=== PATIENT | male | born 1945 | race Caucasian/White ===

== ENCOUNTER 2017-07-13 06:17 | Day surgery (SDC) | payer MEDICARE, OTHER ==
[~2017-07-13 06:17] MED LIST: Lactated Ringers 1,000 ML IV SCH
[2017-07-13] MEDS ORDERED: Propofol 200 MG/20 ML SDV ONE (08:06)
[2017-07-13] MEDS ORDERED: fentaNYL 100 MCG/2 ML SDV ONE (08:06)
[2017-07-13] MEDS ORDERED: Glycopyrrolate 0.2 MG/ML 2 ML SDV ONE (08:20)
--- NOTE | 2017-07-13 11:39 | OR ---
PRE-OPERATIVE DIAGNOSES: Screening colonoscopy. The patient's last colonoscopy in 2007 was normal. He denies any known family history of colon cancer. POST-OPERATIVE DIAGNOSES: 1. Four small polyps, located at 45 cm from the anal verge. a. 4 mm x2, removed with hot snare. b. 2 mm x2, removed with cold forceps. 2. Mild diverticulosis. 3. Minimal hemorrhoids. PROCEDURE: Colonoscopy with polypectomy x4 (2 using hot snare and 2 using cold forceps). SURGEON: Pedro Pablo Yoon M.D. ANESTHESIA: Monitored anesthesia care. BOWEL PREP: Good. DESCRIPTION OF PROCEDURE: Girma Grajeda was brought to the endoscopy suite after discussing risks and benefits of the procedure. Informed consent was obtained for conscious sedation and colonoscopy with or without biopsy and/or polypectomy. We also discussed possibility of missed lesions. Pre-procedure exam was unremarkable. IV, oxygen, and monitors were placed. The patient was placed in the left lateral decubitus position. Sedation was administered and a digital rectal exam was performed, which was unremarkable. Colonoscope was passed into the rectum and slowly advanced all the way to the cecum. Cecum was viewed and photographed. The colonoscope was slowly withdrawn and the mucosa was closed observed in a direct circumferential manner. The ascending colon was unremarkable. The transverse colon was unremarkable. The descending colon did reveal 4 small polyps at around 45 cm. 4 mm x2 were removed with hot snare and 2 mm x2 removed with cold forceps. The sigmoid colon was remarkable for some mild diverticulosis. The transverse and descending colon also had minimal amount of diverticulosis present as well. Retroflexion was performed. Rectal mucosa was unremarkable except for some minimal hemorrhoids, not acutely inflamed. Scope was removed. The patient tolerated the procedure well. The patient was monitored until that baseline status. Discharge instructions were reviewed and the patient was discharged in good condition. COMPLICATIONS: None. TOTAL TIME: 16 minutes. ESTIMATED BLOOD LOSS: Less than 1 mL. RECOMMENDATIONS/FOLLOW-UP: We will await results of path report to determine ideal followup interval. We will have the patient hold his aspirin for 3 days just to limit any chance of bleeding. I would like to kindly thank Felisha Desouza for this referral. DMB: 07/13/2017 08:42:37 MODL: 07/13/2017 10:22:19 /[id number]
== END 2017-07-13 09:34 | disposition home or self-care (01) ==
LOC: VM.SDS 06:17
PROVIDERS: ATTEND Family Medicine
DX: Z12.11 Encounter for screening for malignant neoplasm of colon (principal); D12.4 Benign neoplasm of descending colon; K57.30 Diverticulosis of large intestine without perforation or abscess without bleeding; K64.9 Unspecified hemorrhoids; E78.5 Hyperlipidemia, unspecified; Z79.82 Long term (current) use of aspirin
CPT/HCPCS: 88305; J2704; J3010; J3490; J7120

== ENCOUNTER 2022-10-21 08:06 | Day surgery (SDC) | payer MEDICARE, OTHER ==
[2022-10-21] MEDS ORDERED: Propofol 200 MG/20 ML SDV ONE (09:49)
[2022-10-21] MEDS ORDERED: fentaNYL 100 MCG/2 ML SDV ONE (09:49)
[2022-10-21] MEDS ORDERED: Atropine 0.4 MG/ML SDV ONE (10:13)
== END 2022-10-21 11:30 | disposition home or self-care (01) ==
LOC: VM.SDS 08:06
PROVIDERS: ATTEND Student in an Organized Health Care Education/Training Program
DX: Z12.11 Encounter for screening for malignant neoplasm of colon (principal); D12.2 Benign neoplasm of ascending colon; D12.3 Benign neoplasm of transverse colon; E78.5 Hyperlipidemia, unspecified; Z98.890 Other specified postprocedural states; Z79.899 Other long term (current) drug therapy
CPT/HCPCS: 00812; 88305; J0461; J2704; J3010; J7120